=== PATIENT | male | born 1975 | race Caucasian/White ===

== ENCOUNTER 2018-04-24 22:56 | Emergency (ER) | payer SELFPAY ==
[~2018-04-24] VITALS: Ht 162.6 cm; Wt 74.0 kg
[2018-04-24 23:01] VITALS: Ht 162.6 cm; Wt 74.0 kg
[2018-04-25] MEDS ORDERED: SOD CHLORIDE 0.9% 1,000 ML IV STA (03:13)
[2018-04-25] MEDS ORDERED: ONDANSETRON 4 MG INJ IV STA (03:13)
[2018-04-25] MEDS ORDERED: KETOROLAC 30 MG INJ IV STA (03:13)
[2018-04-25] MEDS ORDERED: FAMOTIDINE 20 MG TAB PO ONE (03:30)
[2018-04-25] MEDS ORDERED: ACETAMINOPHEN 325 MG TAB PO ONE (03:30)
[2018-04-25] MEDS ORDERED: ACET500C5 PO (04:36)
[2018-04-25] MEDS ORDERED: BISM262O23 PO (04:36)
[2018-04-25] MEDS ORDERED: ONDA8TAB14 PO (04:36)
--- NOTE | 2018-04-25 04:38 | ERD ---
ER Documentation Chief Complaint Chief Complaint VOMITING WITH AP X3DAYS HPI 42-year-old male presents with vomiting and diarrhea and epigastric abdominal pain for last 3 days. Low-grade temperature triage. Denies any lower abdominal pain, urinary complaints. He is otherwise healthy. Denies any foreign travel or suspect food or sick contacts. ROS All systems reviewed and are negative except as per history of present illness. Medications Home Meds Active Scripts Bismuth Subsalicylate* (Pepto-Bismol*) 262 Mg/15 Ml Oral.susp, 15 ML PO Q3H PRN for DIARRHEA for 5 Days, ML Prov:LOCO STOKES MD 04/25/18 Ondansetron (Ondansetron Odt) 8 Mg Tab.rapdis, 8 MG PO Q6H PRN for NAUSEA AND/OR VOMITING, #10 TAB Prov:LOCO STOKES MD 04/25/18 Acetaminophen* (Tylophen*) 500 Mg Capsule, 1 CAP PO Q6H PRN for PAIN AND OR ELEVATED TEMP, #15 CAP Prov:LOCO STOKES MD 04/25/18 Allergies Allergies: Coded Allergies: No Known Allergy (Unverified , 04/24/18) PMhx/Soc Medical and Surgical Hx: pt denies Medical Hx, pt denies Surgical Hx Hx Alcohol Use: No Hx Substance Use: No Hx Tobacco Use: No Smoking Status: Never smoker FmHx Family History: No diabetes, No coronary disease, No other Physical Exam Vitals Vital Signs Date Temp Pulse Resp B/P (MAP) Pulse Ox O2 O2 Flow FiO2 Time Delivery Rate 04/25/18 99.0 75 16 148/75 99 Room Air 04:57 (99) 04/24/18 100.1 67 19 154/86 98 23:01 (108) Physical Exam Const: No acute distress Head: Atraumatic Eyes: Normal Conjunctiva ENT: Normal External Ears, Nose and Mouth. Neck: Full range of motion. No meningismus. Resp: Clear to auscultation bilaterally Cardio: Regular rate and rhythm, no murmurs Abd: Soft, mild tenderness primary in the epigastric and upper abdomen. No Rey sign and no tenderness McBurney's point. No rebound., non distended. Normal bowel sounds Skin: No petechiae or rashes Back: No midline or flank tenderness Ext: No cyanosis, or edema Neur: Awake and alert Psych: Normal Mood and Affect Result Diagram: 04/25/18 0322 04/25/18 0322 Results 24 hrs Laboratory Tests Test 04/25/18 03:22 White Blood Count 13.8 10^3/ul Red Blood Count 5.39 10^6/ul Hemoglobin 16.1 g/dl Hematocrit 47.9 % Mean Corpuscular Volume 88.9 fl Mean Corpuscular Hemoglobin 29.9 pg Mean Corpuscular Hemoglobin Concent 33.6 g/dl Red Cell Distribution Width 12.2 % Platelet Count 285 10^3/UL Mean Platelet Volume 10.1 fl Immature Granulocytes % 0.800 % Neutrophils % 81.9 % Lymphocytes % 10.8 % Monocytes % 6.1 % Eosinophils % 0.1 % Basophils % 0.3 % Nucleated Red Blood Cells % 0.0 /100WBC Immature Granulocytes # 0.110 10^3/ul Neutrophils # 11.3 10^3/ul Lymphocytes # 1.5 10^3/ul Monocytes # 0.8 10^3/ul Eosinophils # 0.0 10^3/ul Basophils # 0.0 10^3/ul Nucleated Red Blood Cells # 0.0 10^3/ul Urine Color YELLOW Urine Clarity CLEAR Urine pH 6.0 Urine Specific [place] 1.028 Urine Ketones NEGATIVE mg/dL Urine Nitrite NEGATIVE mg/dL Urine Bilirubin NEGATIVE mg/dL Urine Urobilinogen 1+ mg/dL Urine Leukocyte Esterase NEGATIVE José/ul Urine Microscopic RBC 17 /HPF Urine Microscopic WBC 1 /HPF Urine Mucus MANY /HPF Urine Hemoglobin NEGATIVE mg/dL Urine Glucose 1+ mg/dL Urine Total Protein 1+ mg/dl Sodium Level 145 mmol/L Potassium Level 4.4 mmol/L Chloride Level 105 mmol/L Carbon Dioxide Level 31 mmol/L Anion Gap 9 Blood Urea Nitrogen 12 mg/dl Creatinine 0.71 mg/dl Est Glomerular Filtrat Rate mL/min > 60 mL/min Glucose Level 151 mg/dl Calcium Level 9.9 mg/dl Total Bilirubin 0.4 mg/dl Direct Bilirubin 0.00 mg/dl Indirect Bilirubin 0.4 mg/dl Aspartate Amino Transf (AST/SGOT) 31 IU/L Alanine Aminotransferase (ALT/SGPT) 78 IU/L Alkaline Phosphatase 93 IU/L Total Protein 8.1 g/dl Albumin 4.7 g/dl Globulin 3.40 g/dl Albumin/Globulin Ratio 1.38 Lipase 62 U/L Current Medications Medications Dose Sig/Cristian Start Time Status Last (Trade) Ordered Route PRN Stop Time Admin Dose Reason Admin Sodium 1,000 ml @ Q1H STAT 04/25/18 DC 04/25/18 Chloride 1,000 mls/hr IV 03:13 03:20 04/25/18 04:12 Ondansetron 4 mg ONCE STAT 04/25/18 DC 04/25/18 HCl (Zofran IV 03:13 03:20 Inj) 04/25/18 03:14 Ketorolac 30 mg ONCE STAT 04/25/18 DC 04/25/18 Tromethamine IV 03:13 03:21 (Toradol) 04/25/18 03:14 650 mg ONCE ONCE 04/25/18 DC 04/25/18 Acetaminophen PO 03:30 03:21 (Tylenol 04/25/18 03:31 Tab) Famotidine 20 mg ONCE ONCE 04/25/18 DC 04/25/18 (Pepcid) PO 03:30 03:20 04/25/18 03:31 Procedures/MDM Patient presents with low-grade temperature, vomiting diarrhea which is nonbilio us nonbloody. No blood or mucus in the diarrhea. Given duration of symptoms an IV was obtained. Given 1 L normal saline IV. Given Zofran, Tylenol and Toradol. Patient had mild leukocytosis. No other significant acute abnormalities on urinary laboratory work. Patient had resolution of symptoms after observation treatment. Patient may have early viral illness although he will be discharged home with Zofran, Tylenol, Pepto-Bismol and return precautions in the next 1 day for vomiting despite treatment, lower abdominal pain, new or worsening symptoms with primary care doctor this week. The patient was stable with no new complaints during the ER course. Clinically, there is no current evidence to suggest meningitis, sepsis, acute abdomen, pneumonia, stroke, acute coronary syndrome, pulmonary embolism, aortic dissection or any other emergent condition appearing to require further evaluation or hospitalization. Patient counseled regarding my diagnostic impression and care plan. Prior to discharge all questions answered. Pt agrees with treatment plan and understands strict return precautions. Pt is instructed to follow up with primary care provider within 24-48 hours. Precautionary instructions provided including instructions to return to the ER if not improving or for any worsening or changing symptoms or concerns. Departure Diagnosis: Primary Impression: Vomiting and diarrhea Condition: Stable Patient Instructions: Vomiting And Diarrhea, Nonspecific (Adult) Referrals: NO PRIMARY,CARE PHYSICIAN (PCP) Additional Instructions: Probablamente un virus que dura 2-4 jerry. cheque otro vez en el proximo david para mas simptomas- vomito, dolor, kem, problemas con respirando, o con banks doctor primario. Horita los examines dice no tiene appendicits o emferma mal, zen es importante coma esta en el proximo david. chequ 8-12 horas par mas dolor, especialamente derecho y abajo vomito , fiebre, nueva simptomas. LOCO STOKES MD Apr 25, 2018 04:38
[2018-04-25 04:57] VITALS: BP 148/75; PULSE 75; RESP 16
[2018-04-26] MEDS ORDERED: DOCU-144 PO (04:11)
[2018-04-26] MEDS ORDERED: TRAM50TA2 PO (04:11)
[2018-04-26] MEDS ORDERED: RANI150T35 PO (04:11)
== END 2018-04-25 05:01 | disposition home or self-care (01) ==
LOC: FTE 22:56
DX: R11.10 Vomiting, unspecified (principal); R19.7 Diarrhea, unspecified
CPT/HCPCS: 36415; 80053; 81001; 83690; 85025; 96374; 96375; 99284; J1885; J2405; J7030

== ENCOUNTER 2018-04-25 21:45 | Emergency (ER) | payer MEDICAID, OTHER ==
[~2018-04-25] VITALS: Wt 73.7 kg
[~2018-04-25 21:45] MED LIST: ACET500C5 PO; BISM262O23 PO; ONDA8TAB14 PO
[2018-04-25] MEDS ORDERED: ONDANSETRON 4 MG INJ IV STA (23:35)
[2018-04-25] MEDS ORDERED: SOD CHLORIDE 0.9% 1,000 ML IV STA (23:35)
[2018-04-25] MEDS ORDERED: morphine 4 MG/ML VIAL IV STA (23:35)
--- NOTE | 2018-04-26 04:10 | ERD ---
ER Documentation Chief Complaint Chief Complaint abdominal pain/vomiting x 2 days, was here yesterday for same HPI This is a 42-year-old male coming with abdominal pain vomiting for 2 days. He was seen here yesterday for similar complaints. Pain is epigastric in location with no exacerbating alleviating factors. Mild to moderate intensity. 2-3 episodes of vomiting which is nonbilious nonbloody. Denies any other current issues. Denies chills. Denies diarrhea. Last bowel movement was today. ROS All systems reviewed and are negative except as per history of present illness. Medications Home Meds Active Scripts Bismuth Subsalicylate* (Pepto-Bismol*) 262 Mg/15 Ml Oral.susp, 15 ML PO Q3H PRN for DIARRHEA for 5 Days, ML Prov:LOCO STOKES MD 04/25/18 Ondansetron (Ondansetron Odt) 8 Mg Tab.rapdis, 8 MG PO Q6H PRN for NAUSEA AND/OR VOMITING, #10 TAB Prov:LOCO STOKES MD 04/25/18 Acetaminophen* (Tylophen*) 500 Mg Capsule, 1 CAP PO Q6H PRN for PAIN AND OR ELEVATED TEMP, #15 CAP Prov:LOCO STOKES MD 04/25/18 Allergies Allergies: Coded Allergies: No Known Allergy (Unverified , 04/24/18) PMhx/Soc Medical and Surgical Hx: pt denies Medical Hx, pt denies Surgical Hx History of Surgery: No Anesthesia Reaction: No Hx Neurological Disorder: No Hx Respiratory Disorders: No Hx Cardiac Disorders: No Hx Psychiatric Problems: No Hx Miscellaneous Medical Probl: No (PT DENIES MED/SX HX) Hx Alcohol Use: No Hx Substance Use: No Hx Tobacco Use: No Smoking Status: Never smoker Physical Exam Vitals Vital Signs Date Temp Pulse Resp B/P (MAP) Pulse Ox O2 O2 Flow FiO2 Time Delivery Rate 04/26/18 99.0 60 16 148/89 99 Room Air 02:45 (108) 04/25/18 100.0 66 18 158/92 99 21:52 (114) Physical Exam Const: No acute distress Head: Atraumatic Eyes: Normal Conjunctiva ENT: Normal External Ears, Nose and Mouth. Neck: Full range of motion. No meningismus. Resp: Clear to auscultation bilaterally Cardio: Regular rate and rhythm, no murmurs Abd: Soft, non tender, non distended. Normal bowel sounds Skin: No petechiae or rashes Back: No midline or flank tenderness Ext: No cyanosis, or edema Neur: Awake and alert Psych: Normal Mood and Affect Result Diagram: 04/26/18 0002 04/26/18 0002 Results 24 hrs Laboratory Tests Test 04/26/18 00:02 White Blood Count 12.6 10^3/ul Red Blood Count 5.43 10^6/ul Hemoglobin 16.3 g/dl Hematocrit 47.4 % Mean Corpuscular Volume 87.3 fl Mean Corpuscular Hemoglobin 30.0 pg Mean Corpuscular Hemoglobin Concent 34.4 g/dl Red Cell Distribution Width 12.4 % Platelet Count 271 10^3/UL Mean Platelet Volume 10.1 fl Immature Granulocytes % 0.400 % Neutrophils % 88.0 % Lymphocytes % 6.0 % Monocytes % 5.2 % Eosinophils % 0.2 % Basophils % 0.2 % Nucleated Red Blood Cells % 0.0 /100WBC Immature Granulocytes # 0.050 10^3/ul Neutrophils # 11.1 10^3/ul Lymphocytes # 0.8 10^3/ul Monocytes # 0.7 10^3/ul Eosinophils # 0.0 10^3/ul Basophils # 0.0 10^3/ul Nucleated Red Blood Cells # 0.0 10^3/ul Urine Color YELLOW Urine Clarity CLEAR Urine pH 6.0 Urine Specific [place] 1.024 Urine Ketones TRACE mg/dL Urine Nitrite NEGATIVE mg/dL Urine Bilirubin NEGATIVE mg/dL Urine Urobilinogen NEGATIVE mg/dL Urine Leukocyte Esterase NEGATIVE José/ul Urine Microscopic RBC 8 /HPF Urine Microscopic WBC 1 /HPF Urine Mucus MODERATE /HPF Urine Hemoglobin NEGATIVE mg/dL Urine Glucose NEGATIVE mg/dL Urine Total Protein 1+ mg/dl Sodium Level 142 mmol/L Potassium Level 4.1 mmol/L Chloride Level 101 mmol/L Carbon Dioxide Level 27 mmol/L Anion Gap 14 Blood Urea Nitrogen 8 mg/dl Creatinine 0.71 mg/dl Est Glomerular Filtrat Rate mL/min > 60 mL/min Glucose Level 132 mg/dl Calcium Level 9.5 mg/dl Total Bilirubin 0.4 mg/dl Direct Bilirubin 0.00 mg/dl Indirect Bilirubin 0.4 mg/dl Aspartate Amino Transf (AST/SGOT) 35 IU/L Alanine Aminotransferase (ALT/SGPT) 80 IU/L Alkaline Phosphatase 85 IU/L Total Protein 8.0 g/dl Albumin 4.6 g/dl Globulin 3.40 g/dl Albumin/Globulin Ratio 1.35 Lipase 50 U/L Current Medications Medications Dose Sig/Cristian Start Time Status Last (Trade) Ordered Route PRN Stop Time Admin Dose Reason Admin Sodium 1,000 ml @ Q1H STAT 04/25/18 DC 04/26/18 Chloride 1,000 mls/hr IV 23:35 00:05 04/26/18 00:34 Morphine 4 mg ONCE STAT 04/25/18 DC 04/26/18 Sulfate IV 23:35 00:06 (morphine) 04/25/18 23:36 Ondansetron 4 mg ONCE STAT 04/25/18 DC 04/26/18 HCl (Zofran IV 23:35 00:06 Inj) 04/25/18 23:36 Procedures/MDM Emergency department course: Patient seen and evaluated triage was placed in bed from evaluation. Blood work done. A stat CT scan of the pelvis. Given pain medication. Given fluids. Serial exams are stable. Diagnostic data: Chest X-ray 1V Interpreted by me: Soft Tissue: No acute abnormalities Bones: No acute abnormalities Mediastinum/Cardiac Silhouette/Lungs: [No acute abnormalities] Medical decision making: This is a 42-year-old male with nonspecific and undeter mined abdominal pain. Differential includes pancreatitis versus gastritis versus cholecystitis versus choledocholithiasis. Patient has no evidence of any of these on CT. Patient will be discharged home with a trial of outpatient management given that he is now pain-free in the ER and well-appearing. Have advised him to follow-up in 8 hours for serial abdominal exams which he agrees. Patient's gastrointestinal symptoms have stabilized while in the department. No evidence of severe dehydration, sepsis, or surgical abdomen. Extensive discussion with family and patient that occult disease cannot be ruled out. 8 hour recheck for repeat abdominal exam is planned. Departure Diagnosis: Primary Impression: Abdominal pain Abdominal location: unspecified location Qualified Codes: R10.9 - Unspecified abdominal pain Condition: Stable KERVIN STERNEL Gwen Apr 26, 2018 04:10
[2018-04-26] MEDS ORDERED: DOCU-144 PO (04:11)
[2018-04-26] MEDS ORDERED: TRAM50TA2 PO (04:11)
[2018-04-26] MEDS ORDERED: RANI150T35 PO (04:11)
[2018-04-26 05:14] VITALS: BP 115/76; PULSE 70; RESP 16
== END 2018-04-26 05:15 | disposition home or self-care (01) ==
LOC: E/R 21:45
DX: R10.13 Epigastric pain (principal); R11.10 Vomiting, unspecified; R40.2142 Coma scale, eyes open, spontaneous, at arrival to emergency department; R40.2362 Coma scale, best motor response, obeys commands, at arrival to emergency department; R40.2252 Coma scale, best verbal response, oriented, at arrival to emergency department
CPT/HCPCS: 36415; 71045; 74176; 80053; 81001; 83690; 85025; 96374; 96375; J2270; J2405; J7030; Z7502